=== PATIENT | female | born 1995 | race Caucasian/White ===

== ENCOUNTER 2017-04-20 12:29 | Emergency (ER) | payer BC ==
--- NOTE | 2017-04-20 15:09 | UC ---
Knee Pain HPI - HPI Summary HPI Summary: Patient was walking yesterday, fell after her left knee gave out, she cannot extend it. - History of Current Complaint Chief Complaint: UCLowerExtremity Stated Complaint: LEFT KNEE PAIN Time Seen by Provider: 04/20/17 14:57 Hx Obtained From: Patient Hx Last Menstrual Period: has IUD ?: No Onset/Duration: Sudden Onset, Lasting Hours Severity Initially: Moderate Severity Currently: Moderate Character: Throbbing, Spasmodic, Stiffness Aggravating Factor(s): Weight Bearing, Prolonged Standing, Stairs Alleviating Factor(s): Rest Associated Signs And Symptoms: Positive: Swelling, Weakness Able to Bear Weight: No - Allergies/Home Medications Allergies/Adverse Reactions: Allergies Allergy/AdvReac Type Severity Reaction Status Date / Time Penicillins Allergy Unknown family Verified 04/20/17 13:14 allergy Home Medications: Home Medications Levonorgestrel (Iud) [Mirena IUD] 20 mcg IU DAILY 04/20/17 [History Confirmed ] PMH/Surg Hx/FS Hx/Imm Hx Previously Healthy: Yes - Surgical History Surgical History: Yes Surgery Procedure, Year, and Place: deviated septum - Family History Known Family History: Positive: Hypertension - Social History Alcohol Use: Occasionally Substance Use Type: None Smoking Status (MU): Never Smoked Tobacco - Immunization History Most Recent Influenza Vaccination: none Review of Systems Constitutional: Negative Skin: Negative Eyes: Negative ENT: Negative Respiratory: Negative Cardiovascular: Negative Gastrointestinal: Negative Genitourinary: Negative Motor: Negative Neurovascular: Negative Musculoskeletal: Arthralgia, Decreased ROM, Edema, Myalgia Neurological: Negative Psychological: Negative Is Patient Immunocompromised?: No All Other Systems Reviewed And Are Negative: Yes Physical Exam Triage Information Reviewed: Yes Appearance: Well-Appearing, Well-Nourished, Pain Distress Vital Signs: Initial Vital Signs Temp 99.3 F 04/20/17 13:09 Pulse 77 04/20/17 13:09 Resp 16 04/20/17 13:09 BP 129/70 04/20/17 13:09 Pulse Ox 99 04/20/17 13:09 Vital Signs Reviewed: Yes Eye Exam: Normal ENT Exam: Normal Dental Exam: Normal Neck exam: Normal Respiratory Exam: Normal Cardiovascular Exam: Normal Abdominal Exam: Normal Bowel Sounds: Positive: Present Musculoskeletal: Positive: Strength Limited @ - cant bear weight, ROM Limited @ - cant extend, Edema @ - in joint Neurological Exam: Normal Neurological: Positive: Alert, Muscle Tone Normal Psychological Exam: Normal Skin Exam: Normal Knee Pain Course/Dx - Course Course Of Treatment: hx obtained, exam performed ,meds reviewed, xray obtained neg exam, LCL sprain - Differential Dx/Diagnosis Differential Diagnosis/HQI/PQRI: Contusion, Dislocation, Fracture (Closed), Patellofemoral Syndrome, Sprain, Strain Provider Diagnoses: LCL sprain of left knee Discharge - Discharge Plan Condition: Stable Disposition: HOME Patient Education Materials: Knee Sprain (ED) Forms: *Work Release Referrals: No Primary Care Phys,NOPCP [Primary Care Provider] - Cecil Manuel MD [Medical Doctor] - Additional Instructions: 1. rest, compress and elevated the knee when at rest. 2. NO rugby for a week 3. If not feeling better in a weeks time, with rest and Ibuprofen, follow up with Dr Manuel.
--- NOTE | 2017-04-20 15:38 | RAD ---
INDICATION: left knee pain COMPARISON: none TECHNIQUE: AP, lateral, and oblique views were obtained. FINDINGS: The bony structures, joint spaces, and soft tissues are normal for age. IMPRESSION: negative exam.
== END 2017-04-20 15:59 | disposition home or self-care (01) ==
LOC: UCCORT 12:29
DX: S83.422A Sprain of lateral collateral ligament of left knee, initial encounter (principal); W18.30XA Fall on same level, unspecified, initial encounter; Y93.01 Activity, walking, marching and hiking; Y92.9 Unspecified place or not applicable; Z88.0 Allergy status to penicillin
CPT/HCPCS: 99202; G0463

== ENCOUNTER 2018-02-25 14:04 | Emergency (ER) | payer BC ==
[2018-02-25 16:06] VITALS: BP 120/65
--- NOTE | 2018-02-25 16:35 | UC ---
UC General HPI - HPI Summary HPI Summary: pt c/o feeling fatigued, body aches and chest congestion x 2 days. exposed to a friend who was dx with mono and is requesting testing. denies sore throat, fever and prior hx mono. - History of Current Complaint Chief Complaint: UCGeneralIllness Stated Complaint: FATIGUE (EXPOSURE TO MONO) Time Seen by Provider: 02/25/18 16:28 Hx Obtained From: Patient Hx Last Menstrual Period: has IUD Onset/Duration: Gradual Onset Timing: Constant Pain Intensity: 0 Alleviating: nothing - Allergy/Home Medications Allergies/Adverse Reactions: Allergies Allergy/AdvReac Type Severity Reaction Status Date / Time Penicillins Allergy See Comment Verified 02/25/18 16:04 PMH/Surg Hx/FS Hx/Imm Hx Previously Healthy: Yes - Surgical History Surgical History: Yes Surgery Procedure, Year, and Place: deviated septum. ACL and meniscus in left knee - Family History Known Family History: Positive: Hypertension - Social History Occupation: Student Lives: Dormitory/Roommates Alcohol Use: Occasionally Substance Use Type: None Smoking Status (MU): Never Smoked Tobacco - Immunization History Most Recent Influenza Vaccination: none Vaccination Up to Date: Yes Review of Systems Constitutional: Fatigue Skin: Negative Eyes: Negative ENT: Negative Respiratory: Negative Cardiovascular: Negative Gastrointestinal: Negative Genitourinary: Negative Motor: Negative Neurovascular: Negative Musculoskeletal: Myalgia Neurological: Negative Psychological: Negative Is Patient Immunocompromised?: No All Other Systems Reviewed And Are Negative: Yes Physical Exam Triage Information Reviewed: Yes Appearance: Well-Appearing Vital Signs: Initial Vital Signs Temp 99.0 F 02/25/18 16:00 Pulse 59 02/25/18 16:00 Resp 14 02/25/18 16:00 BP 120/65 02/25/18 16:00 Pulse Ox 98 02/25/18 16:00 Vital Signs Reviewed: Yes Eyes: Positive: Conjunctiva Clear ENT: Positive: Pharynx normal, TMs normal. Negative: Nasal congestion, Nasal drainage Neck: Positive: Supple, Nontender, No Lymphadenopathy Respiratory: Positive: Lungs clear, Normal breath sounds Cardiovascular: Positive: RRR, No Murmur Abdomen Description: Positive: Nontender, No Organomegaly, Soft. Negative: Distended, Guarding, Hepatomegaly Bowel Sounds: Positive: Present Musculoskeletal: Positive: ROM Intact, Other: - No cervical, axillary, epitrochlear or inguinal adenopathy. Neurological: Positive: Alert Psychological: Positive: Age Appropriate Behavior Skin Exam: Normal Diagnostics - Laboratory Diagnostic Studies Completed/Ordered: CBC with diff and mono pending. Course/Dx - Course Course Of Treatment: pt advised that eary testing for mono may be false negative. ongoing s/s's may require repeat test. pt still wants testing. 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 need for close f/u and recheck stressed. - Differential Dx - Multi-Symptom Provider Diagnoses: fatigue. r/o mono. Discharge - Sign-Out/Discharge Documenting (check all that apply): Patient Departure All imaging exams completed and their final reports reviewed: No Studies - Discharge Plan Condition: Stable Disposition: HOME Patient Education Materials: Fatigue (ED), Mononucleosis (ED) Forms: *Physical Education Release Referrals: [facility] [Outside] - 5 Days - Billing Disposition and Condition Condition: STABLE Disposition: Home
[2018-02-25 19:29] LABS: ABS Basophils 0 10^3/ul (0-0.2); ABS Eosinophils 0.1 10^3/ul (0-0.6); ABS Lymphocytes 1.5 10^3/ul (1.0-4.8); ABS Monocytes 0.5 10^3/ul (0-0.8); ABS Neutrophils 5.2 10^3/ul (1.5-7.7); ABS Nucleated RBC 0 10^3/ul; Hematocrit 40 % (35-47); Hemoglobin 13.5 g/dl (12.0-16.0); Lymphocyte % 20.2 % (25-47); Mean Corpuscular HGB Conc 34 g/dl (31-36); Mean Corpuscular Hemoglobin 32 pg (27-31); Mean Corpuscular Volume 93 fL (80-97); Mean Platelet Volume 10.4 um3 (7.4-10.4); Nucleated Red Blood Cells % 0.1; Platelet Count 188 10^3/ul (150-450); Red Blood Count 4.26 10^6/ul (4.00-5.40); Red Cell Distribution Width 15 % (10.5-15); White Blood Count 7.5 10^3/ul (3.5-10.8)
== END 2018-02-25 17:15 | disposition home or self-care (01) ==
LOC: UCCORT 14:04
DX: R53.83 Other fatigue (principal); Z20.89 Contact with and (suspected) exposure to other communicable diseases; Z88.0 Allergy status to penicillin
CPT/HCPCS: 36415; 85025; 86308; 86664; 86665; 99211; G0463

== ENCOUNTER 2019-09-14 15:52 | Emergency (ER) | payer BC ==
[2019-09-14 16:24] VITALS: BP 113/81
--- NOTE | 2019-09-14 16:41 | UC ---
Ear Complaint HPI - HPI Summary HPI Summary: 24yo female presenting with right ear pain and pressure x4 days. Patient states that her hearing is decreased and she "gets a little dizzy sometimes." Denies drainage from the ear. Denies left ear symptoms. Denies URI symptoms. Denies sore throat. Denies seasonal allergies. Denies recent cold symptoms. Denies fever and chills. States "the nurse said my temperature is 100, but I feel fine. " - History of Current Complaint Chief Complaint: UCEar Stated Complaint: EAR COMPLAINT Hx Obtained From: Patient Hx Last Menstrual Period: has IUD Pain Intensity: 0 - Allergies/Home Medications Allergies/Adverse Reactions: Allergies Allergy/AdvReac Type Severity Reaction Status Date / Time Penicillins Allergy See Comment Verified 09/14/19 16:24 Home Medications: Home Medications Levonorgestrel (Iud) [Mirena IUD] 20 mcg IU DAILY 04/20/17 [History Confirmed ] PMH/Surg Hx/FS Hx/Imm Hx Previously Healthy: Yes - Surgical History Surgical History: Yes Surgery Procedure, Year, and Place: deviated septum. ACL and meniscus in left knee - Family History Known Family History: Positive: Hypertension - Social History Alcohol Use: Weekly Substance Use Type: None Smoking Status (MU): Never Smoked Tobacco - Immunization History Most Recent Influenza Vaccination: none Vaccination Up to Date: Yes Review of Systems All Other Systems Reviewed And Are Negative: Yes Constitutional: Positive: Negative. Negative: Fever, Chills ENT: Positive: Ear Ache - right. Negative: Nasal Discharge, Sinus Congestion, Sinus Pain/Tenderness Respiratory: Positive: Negative Cardiovascular: Positive: Negative Gastrointestinal: Positive: Negative Musculoskeletal: Positive: Negative Neurological/Mental Status: Positive: Negative Physical Exam - Summary Physical Exam Summary: Vital Signs Reviewed: Yes A+Ox3, no distress, well-appearing Eyes: Conjunctiva Clear ENT: Hearing grossly normal, right TM intact with mild effusion without bulging or erythema, left TM clear, moist, uvula midline, no exudate, no erythema Neck: Positive: Supple, no LAD Respiratory: Positive: No respiratory distress, No accessory muscle use + CTA throughout no w/r Cardiovascular: RRR nl s1, s2 no m/r Musculoskeletal Exam: KISER x 4 without difficulty Neurological: Positive: Alert Psychological: Positive: age appropriate behavior Skin: Positive: no rash, no ecchymosis Vital Signs: Initial Vital Signs Temp 100.0 F 09/14/19 16:20 Pulse 91 09/14/19 16:20 Resp 18 09/14/19 16:20 BP 113/81 09/14/19 16:20 Pulse Ox 98 09/14/19 16:20 Ear Complaint Course/Dx - Course Course Of Treatment: Discussed serous otitis media and no signs of infection of the ear. Educated on symptomatic relief with otc analgesics and nasal spray. Informed her that this may last for weeks but should resolve without treatment. Instructed to follow up with any new or worsening symptoms. Patient voiced understanding and agreed with treatment plan. - Differential Dx/Diagnosis Differential Diagnosis/HQI/PQRI: Otitis Media, URI Provider Diagnosis: Right acute serous otitis media Discharge ED - Sign-Out/Discharge Documenting (check all that apply): Patient Departure All imaging exams completed and their final reports reviewed: No Studies - Discharge Plan Condition: Stable Disposition: HOME Patient Education Materials: Serous Otitis Media (ED) Referrals: No Primary Care Phys,NOPCP [Primary Care Provider] - Additional Instructions: As discussed, the fluid behind your ear drum does not show signs of infection and should resolve without treatment. You may try nasal spray, such as flonase, to help alleviate symptoms. Return or follow up with your primary care provider for any new or worsening symptoms. - Billing Disposition and Condition Condition: STABLE Disposition: Home
== END 2019-09-14 16:53 | disposition home or self-care (01) ==
LOC: UCCORT 15:52
DX: H65.01 Acute serous otitis media, right ear (principal); Z88.0 Allergy status to penicillin
CPT/HCPCS: 99211; G0463